=== PATIENT | male | born 1945 | race Caucasian/White ===

== ENCOUNTER 2017-11-15 06:03 | Day surgery (SDC) | payer MEDICARE, OTHER ==
[~2017-11-15] VITALS: Ht 185.4 cm; Wt 114.0 kg
[~2017-11-15 06:03] MED LIST: ASPI81CH PO; ATOR40TA PO; BUME1 PO; CALCA500CH PO; CARV3.125 PO; CHOLESTEROL MED; CLOP75 PO; DOCU100 PO; EZET10 PO; HTN MEDICATION; HYDR1TAB94 PO; NAPR500 PO; POTCHL20ER PO; Pantoprazole So40 MG PO
[2017-11-15] MEDS ORDERED: ELIQUIS5 MG PO (06:27)
[2017-11-15] MEDS ORDERED: FINA5 PO (06:27)
[2017-11-15] MEDS ORDERED: Omeprazole20 M1 PO (06:27)
[2017-11-15] MEDS ORDERED: MAGNESIUM250 MG PO (06:28)
[2017-11-15] MEDS ORDERED: Isosorbide Dini30 MG PO (06:29)
[2017-11-15] MEDS ORDERED: CLOP75 PO (06:29)
[2017-11-15] MEDS ORDERED: NITR.6SL SL (06:29)
[2017-11-15] MEDS ORDERED: METO25ER PO (06:29)
== END 2017-11-15 10:25 | disposition home or self-care (01) ==
LOC: MHTC 06:03
PROC: B211YZZ Fluoroscopy of Multiple Coronary Arteries using Other Contrast (ICD-10-PCS; principal; 2017-11-15)
PROC: 4A023N7 Measurement of Cardiac Sampling and Pressure, Left Heart, Percutaneous Approach (ICD-10-PCS; principal; 2017-11-15)
DX: I25.118 Atherosclerotic heart disease of native coronary artery with other forms of angina pectoris (principal); R94.39 Abnormal result of other cardiovascular function study; I48.91 Unspecified atrial fibrillation; I34.0 Nonrheumatic mitral (valve) insufficiency; E78.00 Pure hypercholesterolemia, unspecified; Z79.02 Long term (current) use of antithrombotics/antiplatelets; Z95.0 Presence of cardiac pacemaker
CPT/HCPCS: 93458; 99152; 99153; C1769; C1894; J0690; J1644; J2250; J3010; J7030; Q9967

== ENCOUNTER 2019-01-30 09:21 | Day surgery (SDC) | payer MEDICARE, OTHER ==
[~2019-01-30] VITALS: Ht 182.9 cm; Wt 112.8 kg
[~2019-01-30 09:21] MED LIST changes: -ATOR40TA PO; +ELIQUIS5 MG PO; +ENTRESTO 97 MG1 EACH PO; +FINA5 PO; +Isosorbide Dini30 MG PO; +Lipitor80 MG PO; +MAGNESIUM250 MG PO; +METO25ER PO; +NITR.6SL SL; +Omeprazole20 M1 PO; +PRAZ1 PO
--- NOTE | 2019-01-30 10:22 | NUR ---
01/30/[address] GASPAR AWARE THAT CGB IS 64 IN PREOP. PT STATES HE FEELS "FINE." NO FURTHER ORDERS AT THIS TIME.
--- NOTE | 2019-01-30 10:39 | NUR ---
01/30/19 1039 Sunita Ortiz LACTATED RINGER WITH 5% DEXTROSE TKO DURING PROCEDURE PER DR GASPAR
== END 2019-01-30 11:40 | disposition home or self-care (01) ==
LOC: ORSCSDS 09:21
PROVIDERS: Surgery
PROC: 0DBK8ZX Excision of Ascending Colon, Via Natural or Artificial Opening Endoscopic, Diagnostic (ICD-10-PCS; principal; 2019-01-30 10:45)
PROC: 0DBL8ZX Excision of Transverse Colon, Via Natural or Artificial Opening Endoscopic, Diagnostic (ICD-10-PCS; principal; 2019-01-30 10:45)
DX: Z12.11 Encounter for screening for malignant neoplasm of colon (principal); D12.2 Benign neoplasm of ascending colon; D12.3 Benign neoplasm of transverse colon; K63.89 Other specified diseases of intestine; K64.4 Residual hemorrhoidal skin tags; K64.8 Other hemorrhoids; Z86.010 Personal history of colon polyps; I10 Essential (primary) hypertension; I48.91 Unspecified atrial fibrillation; E11.9 Type 2 diabetes mellitus without complications; E78.00 Pure hypercholesterolemia, unspecified; J44.9 Chronic obstructive pulmonary disease, unspecified; G47.33 Obstructive sleep apnea (adult) (pediatric); N40.0 Benign prostatic hyperplasia without lower urinary tract symptoms; I50.9 Heart failure, unspecified; E66.9 Obesity, unspecified; Z68.33 Body mass index [BMI] 33.0-33.9, adult; Z79.01 Long term (current) use of anticoagulants; Z79.82 Long term (current) use of aspirin; Z79.899 Other long term (current) drug therapy
CPT/HCPCS: 82947; 88305; J2704; J7120; J7799

== ENCOUNTER 2019-09-09 04:23 | Emergency (ER) | payer MEDICARE, OTHER ==
[~2019-09-09] VITALS: Ht 185.4 cm; Wt 108.9 kg
[~2019-09-09 04:23] MED LIST changes: +ACET325 PO; -ASPI81CH PO; +AZIT500 PO; +Aspir 8181 MG PO; +BENZ100A PO; +Bumetanide1 MG PO; +CEFD300 PO; -Isosorbide Dini30 MG PO; +Isosorbide Mono60 MG PO; +MELA3 PO; -METO25ER PO; +METO50ER PO; +MIRALAX17 GM PO; +MUCUS ER600 MG PO; +NITR.4SL SL; -NITR.6SL SL; +Ropinirole HCl1 MG PO
[2019-09-09] MEDS ORDERED: Prednisone20 MG PO (06:09)
[2019-09-09] MEDS ORDERED: Zofran4 MG PO (06:09)
[2019-09-09] MEDS ORDERED: ALBU90OI INH (06:09)
== END 2019-09-09 06:20 | disposition home or self-care (01) ==
LOC: ER 04:23
DX: R05 Cough (principal); R09.81 Nasal congestion; I10 Essential (primary) hypertension; Z79.899 Other long term (current) drug therapy
CPT/HCPCS: 71046; 99283-25; A9270-GY; J1100

== ENCOUNTER 2020-03-10 11:55 | Day surgery (SDC) | payer MEDICARE, OTHER ==
[~2020-03-10] VITALS: Ht 185.4 cm; Wt 116.8 kg
[~2020-03-10 11:55] MED LIST changes: +ALBU90OI INH; +Prednisone20 MG PO; +Zofran4 MG PO
== END 2020-03-10 13:18 | disposition home or self-care (01) ==
LOC: ORSCSDS 11:55
PROVIDERS: Anesthesiology
PROC: 3E0R33Z Introduction of Anti-inflammatory into Spinal Canal, Percutaneous Approach (ICD-10-PCS; principal; 2020-03-10 13:00)
DX: M96.1 Postlaminectomy syndrome, not elsewhere classified (principal); M54.12 Radiculopathy, cervical region; I48.91 Unspecified atrial fibrillation; I10 Essential (primary) hypertension; G47.33 Obstructive sleep apnea (adult) (pediatric); E78.00 Pure hypercholesterolemia, unspecified; E66.9 Obesity, unspecified; Z68.34 Body mass index [BMI] 34.0-34.9, adult; Z79.01 Long term (current) use of anticoagulants; Z79.82 Long term (current) use of aspirin; Z79.899 Other long term (current) drug therapy
CPT/HCPCS: 82947; J1040; J2250; J3010; J7040

== ENCOUNTER 2021-10-31 05:51 | Day surgery (SDC) | payer MEDICARE, OTHER ==
[~2021-10-31] VITALS: Ht 182.9 cm; Wt 118.0 kg
[2021-10-31] MEDS ORDERED: AMLO5 PO (06:20)
[2021-10-31] MEDS ORDERED: METO50ER PO (06:21)
[2021-10-31] MEDS ORDERED: METF500 PO (06:21)
--- NOTE | 2021-10-31 09:02 | NUR ---
ASSUMED CARE OF PATIENT IN THE RECOVERY ROOM. SBAR RECEIVED FROM MICHAEL COLLIER PATIENT SITING UP IN THE BED WITH ICE PACK TOT HE LEFT SHOULDER. DRESSING TO THE LEFT GEN CHANGE SITE CDI. NO PAIN NOTED FROM THE PAIIENT MONITOR IN USE. VSS. CALL LIGHT IN REACH.
--- NOTE | 2021-10-31 09:12 | NUR ---
ANCEF 1 GRAM IVBP STARTED IV ORDERED.
--- NOTE | 2021-10-31 09:43 | NUR ---
PATIENT PIV REMOVED. CATH TIP INTACT, PRESSURE DRESSING APPLIED. PATIENT UP, OFF THE MONITOR AND DRESSING SELF. REVIEWED DISCHARGE INSTRUCTIONS WITH PATIENT AND , BOTH VERBALIZED UNDERSTANDING OF FOLLOW UP APPOINTMENTS. ALL BELONGINGS GATHERED. [facility] DISCHARGED HOME AMBULATORY WITH RESIDENTIAL MENTAL HEALTH WORKER.
== END 2021-10-31 10:00 | disposition home or self-care (01) ==
LOC: MHTC 05:51
DX: I49.5 Sick sinus syndrome (principal); I11.0 Hypertensive heart disease with heart failure; I50.9 Heart failure, unspecified; I25.10 Atherosclerotic heart disease of native coronary artery without angina pectoris; E78.5 Hyperlipidemia, unspecified; G47.33 Obstructive sleep apnea (adult) (pediatric); I48.91 Unspecified atrial fibrillation
CPT/HCPCS: 33207; 99152; 99153; C1786; J0690; J1580; J1644; J2250; J3010; J7030; J7040

== ENCOUNTER 2023-03-20 09:10 | Inpatient (IN) | payer MEDICARE, OTHER ==
[~2023-03-20] VITALS: Ht 185.4 cm; Wt 112.8 kg
[~2023-03-20 09:10] MED LIST changes: +AMLO5 PO; +METF500 PO
[2023-03-20 09:47] LABS: BASOPHILS ABSOLUTE AUTO 0.02 K/mm3 (0.00-0.23); BASOPHILS PERCENT AUTO 0 % (0-2); EOSINOPHILS ABSOLUTE AUTO 0.02 K/mm3 (0.00-0.68); EOSINOPHILS PERCENT AUTO 0 % (0-6); Hematocrit 39.7 % (37.0-53.0); Hemoglobin 13.2 g/dL (13.5-17.5); IMMATURE GRAN ABSOLUTE AUTO 0.02 K/mm3 (0.00-0.10); IMMATURE GRAN PERCENT AUTO 0 % (0-1); LYMPHOCYTES ABSOLUTE AUTO 0.63 K/mm3 (0.84-5.20); LYMPHOCYTES PERCENT AUTO 13 % (21-46); MONOCYTES PERCENT AUTO 6 % (4-13); Mean Corpuscular HGB 33.1 pg (26.0-34.0); Mean Corpuscular HGB Conc 33.2 g/dL (31.5-36.5); Mean Corpuscular Volume 100 fL (80-100); Mean Platelet Volume 10.4 fL (9.1-12.4); NEUTROPHILS ABSOLUTE AUTO 3.98 K/mm3 (1.96-9.15); NEUTROPHILS PERCENT AUTO 80 % (41-73); Platelet Count 172 K/mm3 (150-400); RDW Coefficient Variation 13.8 % (11.7-14.2); RDW Standard Deviation 50.9 fL (35.1-46.3); Red Blood Cell Count 3.99 M/mm3 (4.30-5.90); White Blood Cell Count 4.97 K/mm3 (4.00-11.30)
[2023-03-20 09:57] LABS: Base Excess Venous 3.1 mmol/L; Bicarbonate Venous 26.8 mmol/L (24.0-30.0); PCO2 Venous 41.7 mmHg (38-42); pH Blood Venous 7.43 (7.34-7.37)
[2023-03-20 10:02] LABS: Magnesium, Blood 2.3 mg/dL (1.6-2.4)
[2023-03-20 10:05] LABS: International Normalized Ratio 1.06; Prothrombin Time Results 11.1 Sec (9.7-11.5)
[2023-03-20] MEDS ORDERED: FARXIGA10 MG PO (10:21)
[2023-03-20] MEDS ORDERED: OMEP20ER PO (10:21)
[2023-03-20] MEDS ORDERED: Amiodarone HCl200 MG PO (10:22)
[2023-03-20] MEDS ORDERED: MELATONIN5 M1 PO (10:22)
[2023-03-20] MEDS ORDERED: Lipitor80 MG PO (10:22)
[2023-03-20] MEDS ORDERED: ELIQUIS5 M2 PO (10:23)
[2023-03-20] MEDS ORDERED: MIRALAX PO (10:23)
[2023-03-20] MEDS ORDERED: CARV25 PO (10:23)
[2023-03-20 10:24] LABS: Alanine Aminotransfer (ALT/SGP 29 U/L (12-78); Albumin, Blood 3.6 g/dL (3.4-5.0); Albumin/Globulin Ratio 1.2 (0.8-1.8); Alk Phos 136 U/L (50-136); Anion Gap 3 mmol/L (6-16); Aspartate Aminotrans (AST/SGOT 25 U/L (12-37); Bilirubin, Total 0.5 mg/dL (0.1-1.0); Blood Urea Nitrogen 24 mg/dL (8-24); Bun/Creatinine Ratio 18.6 (12.0-20.0); CO2, Blood 27 mmol/L (21-32); Chloride, Blood 112 mmol/L (98-108); Creatinine, Blood 1.29 mg/dL (0.60-1.20); Globulin, Blood 2.9 g/dL (2.2-4.0); Glomerular Filtration Rate 56 (60-); Glucose, Blood 142 mg/dL (70-99); Potassium, Blood 4.2 mmol/L (3.5-5.5); Sodium, Blood 142 mmol/L (136-145); Total Protein, Blood 6.5 g/dL (6.4-8.2)
[2023-03-20 10:25] LABS: Ethanol (Alcohol), Blood, Med <3 mg/dL
--- NOTE | 2023-03-20 12:30 | NUR ---
INITIAL ASSESSMENT: Report recieved from [facility] ED RN. Patient arrived via gurney to PCU 10, he is resting with eyes closed. He was slid over to the bed, he opens his eyes with repositioning, he is able to track with the left eye but not the right. Pupils are sluggish on the right. He is not able to follow commands. He is able to squeeze my hand with the left hand, right is flaccid. He has a right facial droop. HRR, he has a pacemaker, he is 100% paced in the 60s. LS DIM in the bases, Biox is high 90s on RA. BT+. PPP. BP is slightly high. PT is DNR band is placed. and sons at the bedside. states the patient was in his normal state last night when he went to bed, when she went to wake him this morning he would not rouse for her. She states he is normally independent and not needing to use any assistive devices. Family oriented to call light and room lay out.
[2023-03-20 17:48] LABS: Source, Urine Straight Cath
[2023-03-20 17:52] LABS: Appearance, Urine Clear (Clear); Bilirubin, Urine Neg (Neg); Blood, Urine 1+ (Neg); Color, Urine Yellow (P-Yellow); Glucose Qualitative, Urine 4+ (Neg); Ketones, Urine Neg (Neg); Leukocyte Esterase, Urine Neg (Neg); Nitrite, Urine Neg (Neg); Protein, Urine 1+ (Neg); Specific Gravity, Urine 1.015 (1.003-1.022); Urobilinogen, Urine NORM (Normal)
[2023-03-20 18:06] LABS: U Amphetamine Screen Not Detected; U Barbituate Screen Not Detected; U Benzodiazapine Screen Not Detected; U Buprenorphine Screen Not Detected; U Cannabinoids Screen Not Detected; U Cocaine Screen Not Detected; U Methadone Screen Not Detected; U Methamphetamine Screen Not Detected; U Opiates Screen DETECTED; U Oxycodone Screen Not Detected; U Phencyclidine Screen Not Detected; U Propoxyphene Screen Not Detected
[2023-03-20 18:10] LABS: Bacteria Rare /hpf; Red Blood Cells, Urine 0-2 /hpf (0-2); Squamous Epithelial Cells Not Seen /hpf (Few); White Blood Cells, Urine 0-2 /hpf (0-5)
--- NOTE | 2023-03-20 18:34 | NUR ---
Summary: Patient was a new ER admit this shift. His found him unresponsvie this morning and called EMS. Patient is minimally responsive with repositioning, he is able to open his eyes and look at family but not track ro stay alert. He has a right facial droop, RUE is flaccid. Spontaneous movement of RLE. He still has gag, cough, and swallow. HRR, Paced in the 60s. Patient has been hypertensive with a SBP in the 170s. LS DIM in the bases, Biox has been high 90s on RA, until the patient starts to drift off and he was dropping down into the high 80s, 2L O2 placed. BT+. PPP. Family is at the bedside, plan is to do a follow up head CT in the morning and go from there. His has made him a DNR, band is in place.
[2023-03-21 00:14] VITALS: BP 180/102
[2023-03-21 04:24] VITALS: BP 178/103
--- NOTE | 2023-03-21 05:45 | NUR ---
NOC SHIFT SUMMARY PT ONLY RESPONSIVE TO PAINFUL STIMULI OVERNIGHT. OPENS EYES SPONTANEOUSLY AT TIMES BUT DOESN'T TRACK. L ARM CONTRACTURE, R LEG WITH SOME MOVEMENT, L LEG FLACCID. PUPILS EQUAL BUT R MORE SLUGGISH THAN LEFT. NO VERBAL RESPONSE. FAMILY AT BEDSIDE THROUGHOUT THE NIGHT AND INVOLVED IN CARE. UPDATED ON PLAN OF CARE WITH REPEAT HEAD CT PLANNED FOR THIS AM. PT Q2 TURNED, VSS PER PT TREND. PACED IN 60S ON TELEMETRY. CONDOM CATH IN PLACE DRAINING YELLOW URINE. NO BM. IVF RUNNING PER PROVIDER ORDER. WILL PASS ON TO DAY RN
[2023-03-21 07:38] VITALS: BP 156/95
--- NOTE | 2023-03-21 08:25 | NUR ---
AM note No response to verbal or painful stimuli; or during oral care or repositioning. Left facial droop noted. Left eye 2mm, not responsive to light, right 3mm and responsive. Right side flaccid, no movement noted; left arm contractured, left leg twitching at times. Reposition pt q2. Oral care completed. Tele paced, bp elevated. Spo2 >90% on ra, snoreing noted. Abd normal for patient, nontender. Other vss. Will continue to monitor.
--- NOTE | 2023-03-21 10:44 | NUR ---
Comfort Care order received. Spoke with Primary RN Ana and discussed case. Family has elected [facility] and plan to D/C home tomorrow. Offered supportive visit this AM with family. Pt resting in bed with his eyes closed. Pt remains with his eyes closed throughout visit. Pt appears comfortable with no S/S of distress at this time. Family expresses appreciation and reports no concerns at this time. Palliative Care will remain available
--- NOTE | 2023-03-21 16:43 | NUR ---
Spiritual care visit conducted. Patient is lying in bed and minimally responsive. Pt's son, Leif, is bedside. He shares about patient's career in the [employer] about his personality traits, his Mandaeism beliefs and his family history. Leif explains about the family dynamics and how they are all coping with patient's prognosis. I normalize the experience, and provide therapeutic listening, anticipatory grief support, patient life review and prayer. Leif responded well and showed signs of being comforted.
--- NOTE | 2023-03-21 18:35 | NUR ---
Shift Summary Pt transitioned to comfort care, plan is home with hospice. Noted pt jerking movements to pain or discomfort at times. No other acute changes noted. Family at bedside t/o shift. Will continue to monitor.
--- NOTE | 2023-03-21 21:48 | NUR ---
ASSUMPTION OF CARE RECEIVED REPORT FROM JES GODWIN RN. FAMILY AT BEDSIDE, DAUGHTER/SPOUSE. PT ON COMFORT CARE. UPPER RESPIRATORYGURGLING NOTED, FAMILY UPSET AND WORRIED THAT THIS WAS " RATTLES" AND THAT THE PATIENT WOULD BE PASSING SOON. DISCUSSED THE USE OF ATROPINE DROPS WITH FAMILY, ADMINISTERED TO GOOD EFFECT ALONG WITH ORAL CARE. FAMILY EDUCATED REGARDING END OF LIFE TREATMENT. PT BEING REPOSITIONED BY STAFF. FAMILY STATES THEY WILL BE BACK IN AM, PHONE NUMBERS ON BOARD. FAMILY ASKED TO BE CALLED IF PT PRESENSTS IMMINENT TO WHICH THIS RN AGREES BUT EDUCATED THAT PATIENTS DO NOT ALWAYS PRESENT IN A WAY THAT CAN FORETELL IMPENDING PASSING. FAMILY STATES THEIR ACCEPTANCE OF THIS. PT SOMEWHAT FEBRILE, AR TYLENOL ADMINISTERED.
[2023-03-22 04:39] VITALS: BP 168/99
--- NOTE | 2023-03-22 06:33 | NUR ---
SHIRITA SUMMARY SEE ASSUMPTION NOTE. NO CHANGS POST NOTE BESIDES STARTING SCOPALAMINE PATCH. SECRETIONS CONTNUE WITH INCREASING SARA ABRAHAM RESPIRATIONS. UPDATED SON IN BEDSIDE. PLAN TO RELEASE TO HOSPICE TODAY. BED ALARM ON. Q2 TURNS TO KEEP COMFORTABLE.
[2023-03-22 07:45] VITALS: BP 172/123
--- NOTE | 2023-03-22 07:45 | NUR ---
AM ASSESSMENT: Pt on comfort care measures. Plan to discharge to home with hospice today. Pt is non-responsive. Repositioned to R side. Pt having occasioanl wyatt stiles respirations. Pt needing suctioning for large amounts of oral secreations. Scapomomine patch in place, atropine drops ordered and will treat per orders. BIox 85-90 on 2L per n/c, which will be discharged with patient. Carrillo cath draining yellow urine. Attends in place, no BM noted. Son at bedside. Denies needs. Will continue to monitor and treat for comfort.
[2023-03-22] MEDS ORDERED: MORP20L SL (09:11)
[2023-03-22] MEDS ORDERED: TRANSDERM-SCOP1 EA13 TD (09:11)
--- NOTE | 2023-03-22 12:37 | NUR ---
DISCHARGE: Pt was discharged to home hospice. Left via ambulance. No changes at time of discharge. Son in room and took patients personal belongings. Denied questions about hospice discharge.
== END 2023-03-22 12:39 | disposition hospice, home (50) | DRG 64 ==
LOC: ER 09:10 → PCU 10:44
PROVIDERS: Student in an Organized Health Care Education/Training Program; ADMIT Internal Medicine
DX: I63.89 Other cerebral infarction (principal); G93.6 Cerebral edema; G81.91 Hemiplegia, unspecified affecting right dominant side; I48.20 Chronic atrial fibrillation, unspecified; I50.22 Chronic systolic (congestive) heart failure; E78.5 Hyperlipidemia, unspecified; M19.90 Unspecified osteoarthritis, unspecified site; Z66 Do not resuscitate; I11.0 Hypertensive heart disease with heart failure; G47.33 Obstructive sleep apnea (adult) (pediatric); Z98.890 Other specified postprocedural states; J44.9 Chronic obstructive pulmonary disease, unspecified; I25.10 Atherosclerotic heart disease of native coronary artery without angina pectoris; Z51.5 Encounter for palliative care; Z88.5 Allergy status to narcotic agent; Z88.8 Allergy status to other drugs, medicaments and biological substances; Z79.899 Other long term (current) drug therapy; Z79.82 Long term (current) use of aspirin; Z79.01 Long term (current) use of anticoagulants; Z79.84 Long term (current) use of oral hypoglycemic drugs; Z95.5 Presence of coronary angioplasty implant and graft; Z95.0 Presence of cardiac pacemaker; Z95.1 Presence of aortocoronary bypass graft
CPT/HCPCS: 70450; 80053; 81001; 82803; 82947; 83605; 83735; 84443; 84484; 85025; 85610; 93005; 93010; 99285-25; A9270; C9113; G0480; J7030